=== PATIENT | male | born 1970 | race Caucasian/White ===

== ENCOUNTER 2024-01-12 11:35 | Outpatient (REF) | payer SELFPAY ==
--- NOTE | 2024-01-12 14:05 | MHC.AU.HA3 ---
Hearing Instrument Follow-Up- Binaural Date of Visit: 01/12/24 Left Ear: Make, Model, Color, Serial Number: Christian OPN S2 PP BTE SN: [id number] Color: Steel P[place]on Teacher [employer] Repair Warranty: 03/14/2023 [employer] Loss and Damage Warranty: 03/14/2023 [facility] Service Plan: 03/12/2021 Battery Size: 13 Moving Consultant/Slim Tube: Earmold/Dome/CShell/SlimTip: MicroSonic Acrylic Canal-Lock Type of Wax Guard: Dispensed By: [facility] Date of Fittin03/12/2020 Follow-Up Summary: Julio returned for an updated hearing test. He reported his primary prototype sewer is Dasha Ba at [facility]. However, he is working with [facility] to possibly pursue a new hearing aid. Julio's hearing and speech discrimination has changed significantly compared to his previous evaluation. Discussed options as Oticon has not yet released a newer power BTE. 1. Change manufacturers 2. Change styles 3. Clean/retube and reprogram current hearing aid, waiting a little longer to see if Oticon releases a newer power BTE 4. Consider CI evaluation. Julio opted for options 3 and 4. Cleaned hearing aid and ear mold. Replaced tubing. Reprogrammed to updated test. Julio noted improvement in sound quality. He reportedly has an appointment scheduled on 01/23/2024 at [facility] and he would like to discuss his options with Dasha. If he decides to pursue a new hearing aid, he will schedule a Hearing Aid Consultation, knowing his test is valid for six months. Recommendations: Hearing instrument follow-up or maintenance as needed. Please contact our clinic with any questions or concerns. Diagnosis Code(s): Primary Diagnosis: H90.3 Bilateral Sensorineural Hearing Loss Signature: Provider: Devin Ambriz, [facility]3]-A
== END 2024-01-12 11:36 | disposition home or self-care (01) ==
LOC: HO.HAP 11:35
PROVIDERS: Visit Provider Physician Assistant
DX: Z46.1 Encounter for fitting and adjustment of hearing aid (principal); H90.3 Sensorineural hearing loss, bilateral
CPT/HCPCS: 92592

== ENCOUNTER 2025-02-05 10:51 | Outpatient (REF) | payer SELFPAY ==
--- OUTSIDE RECORDS SUMMARY | 2025-02-05 12:12 | XMS_ITS | Continuity of Care Document ---
Author Organization [facility] Address [address] [place] [address] Dr [address] [place] [address] Phone Care Team Providers Care Testing Machine Operator Name Role Phone Jona SMITH, VANIA, Goyo GOMEZ Unavailable U navailable Procedures Procedure Date Offic Cons New/estab Mod 40 Mi- CT & [place] Surgical Stockings CVR Reveal Thigh High Duplex Scan-extrem Veins; Uni/ CT & [place] A Advance Directives Directive Yes / No Effective Date File Name No Information Encounters Encounter Description Practice Location Reason(s) For Visit Diagnoses Date Provider Providers Copied on Encounter Offic Cons New/estab Mod 40 Mi- CT & [place] [facility], [address] [place] [address] Dr Carbajal [address], [id number], [place] tel:[phone] [place] Varicose veins of right lower extremity with other complications Pain in right lower legPain in right legLocalized edemaRestless legs syndromePhleb itis and thrombophlebi tis of superficial vessels of lower extremities, bilateralPrur itus, unspecifiedCr amp and spasm 4 Jona SMITH, VANIA, JASON Nance. [address] [facility], [facility], [facility], [id number] , [place]. tel:[phone] [facility], [address] [place] [address] Dr Carbajal [address]N[place], [id number], [place] tel:[phone] [facility] Chronic venous hypertension (idiopathic) with other complications of right lower extremity Jona SMITH, RVT, RPVI Goyo. [address] [facility], [address], [place], [place], [id number] , . tel:[phone] Referring Provider: Erika Lynch [facility], [address], [address]. tel:[phone] Family History Family Member Type Diagnosis Age At Onset No Information Payers Payer name Insurance type Covered democrat ID [id number] [facility] [id number] Social History Type Description Quantity Date Captured Comments Alcohol Use Details Unknown Caffeine Use Details Unknown Tobacco Use Status Current non-smoker Smoking Status Never Smoker Non-Smoking Tobacco Use Details : No Details Available : No Details Available Sex Male Vital Signs Date / Time: Height Weight BMI Pulse Rate Blood Pressure Temperature Respiratory Rate Body Surface Area Head Circumference Head Circ. Percentile Wt./Nicola. Percentile BMI percentile Pulse Ox Inhaled Ox 69.850 kg (154.00 lbs) 24.9 3 kg/m eter (2) 128/36 mm[Hg] Chief Complaint And Reason For Visit No Information Reason For Referral Reason For Referral No Information Plan Of Treatment Date Type Action Status Goal Diet education completed Referral Ordered: Weight management: Referral to physician timeframe: 3 Months (related to Body mass index (BMI) 24.0-24.9, adult) ordered History Of Present Illness Encounter Date Complaint History Of Prese nt Illness No Information Functional Status Date Functional Assessmen t No Information Instructions Date Instruction Additional Infor mation Diet education Related to Body mass index (BMI) 24.0-24.9, adult Giving Encouragement to exercise Related to Body mass index (BMI) 24.0-24.9, adult Lifestyle education Related to B maged mass index (BMI) 24.0-24.9, adult Patient education booklet given Related to Varicose veins of right lower extremity with other complications Pre and post instruc tions reviewed and provided Related to Varicose veins of right lower extremity with other complications Assessments Type Assessment Date No Information Patient Care Teams Name Effective Dates (start - stop) Status Members No Information
--- OUTSIDE RECORDS SUMMARY | 2025-02-05 12:12 | XMS_ITS | Data Portability ---
Author Organization [place] - [facility] Address [address] [address] Care Team Providers Care Flattening Press Operator Name Role Phone JAIDA VILLAREAL Primary Care Provider Assessment Encounter Date Assessment Date Assessment LastModified by Organization Details LastModified Time 11/06/2024 11/06/2024 Patient with bilateral cerumen impaction. Tolerated left debridement well; TM fully visualized - intact with well-aerated middle ear space. Right ear with thick film of hard dry cerumen pressed against the drum. Partially debrided; visualized portion of TM intact with well-aerated middle ear space. Recommend 14 day trial of mineral oil BID and return for further debridement. Discussed moving forward he may benefit from weekly application of mineral oil to both ears. Reviewed instructions for use - 2-3 drops into the ear, lie on that side for five minutes, then switch. [email or web address] Not available 11/06/2024 11:18:38 11/27/2024 11/27/2024 54yo male with right-sided profound and left-sided severe SNHL with amplification presents for right cerumen debridement. He trialed mineral oil regimen. Cerumen impaction removed from the right external auditory canal. Otologic exam demonstrates TMs are intact and well aerated. Patient is closely followed by Dasha Frias at [facility] audiology. He is scheduled for updated audiometric testing and hearing aid fitting next month. He researched cochlear implant technology and is not interested in surgical intervention at this time. He will follow-up in our office as needed for cerumen debridement. [email or web address] Not available 11/27/2024 10:49:43 Plan of Treatment Reminders Order Date Submit Date Provider Last Modified By Organization Details Last Modified Time Details Appointments None record ed. Lab None record ed. Referral None record ed. Procedures None record ed. Surgeries None record ed. Imaging None record ed. Medication Orders None record ed. Patient TargetsNo targets recorded. Patient InstructionsNo instructions recorded. Reason for Referral None Reported. Results Created Date Observation Date Name Description Value Unit Range Abnormal Flag Note LastModifiedBy Organization Detail LastModifiedTime 11/07/1911/07/2024 audio logic asses sment (PROC ) No observ ation record ed. [email or web address] [facility] [address] [place] [address], [id number], 11/08/2024 09:58:55 Result Notes None recorded. Problems Name Problem SNOMED Code Status Onset Date Resolution Date Notes Provider Name and Address Organization Details Recorded Time Impacted cerumen of bilateral ears 54249889040 27826 Active 2017 Impacted cerumen, bilateral ; Note: Date Diagnosed : 10/26/2017 11:21 AM (H61.23) Not Available [facility] 4 02:25:20 Sensorine ural hearing loss of bilateral ears 760557992 Active 2017 Sensorine ural hearing loss, bilateral ; Note: Date Diagnosed : 10/26/2017 10:55 AM (H90.3) Not Available [facility] 4 02:25:28 Impacted cerumen in left ear 38385981705 28232 Active 2019 Impacted cerumen, left ear; Note: Date Diagnosed : 10/28/2019 2:44 PM (H61.22) Not Available [facility] 4 02:25:39 Pain in throat 954028540 Active 2018 Pain in throat; Note: Date Diagnosed : 04/29/2019 5:17 PM (R07.0) Not Available [facility] 4 02:25:31 M? ? ?ni? ? ?re's disease 46491824 Active 2017 Meniere's disease, unspecifi ed ear; Note: Date Diagnosed : 10/26/2017 11:22 AM (H81.09) Not Available [facility] 4 02:25:28 Bilateral tinnitus 98522472863 02 Active 2024 ODIN MORGAN PA-C [address], [place], [address] , [facility] - [facility] 11:18:41 Impacted cerumen in right ear 22295898561 38168 Active 2024 GAURANG MOREIRA PA-C [address], [place], [address] , [facility] - [facility] 22:20:51 Problem Notes None recorded. Procedures Surgical History Date Name Laterality Status Provider Name and Address Organization Details Recorded Time Cerumen removal without microscope right completed GAURANG MOREIRA [facility]-C [address] [facility],[address]IE [facility], [place], [address], [facility] - [facility] 11/26/2024 22:20:43 Cerumen removal without microscope bilat completed ODIN MORGAN PA-C [address] [facility] [place],[address]IE [facility], [place], [address], [facility] - [facility] 11/06/2024 11:13:42 Imaging Results Imaging Date Name Status LastModified by Organiz ation Details LastModified Time 11/07/2024 audiologic assessment (PROC) completed [email or web address] [facility] [address] [place] [address], [id number], 11/08/2024 09:58:55 Procedure Notes None recorded. Medical Equipment None Reported. Medications Name Sig Start Date Stop Date Status Note LastModified by Organization Details LastModified Time naltrexone 50 mg tablet active Not Available Not Available Not Available atenolol 25 mg tablet active Not Available Not Available Not Available sertraline 25 mg tablet active Not Available Not Available Not Available bisacodyl 5 mg tablet,delayed release 11/06 completed Not Available Not Available Not Available atenolol 50 mg tablet active Not Available Not Available Not Available fenofibrate nanocrystallized 145 mg tablet active Not Available Not Availabl e Not Available GaviLyte-G 236 gram-22.74 gram-6.74 gram-5.86 gram oral solution 11/06 completed Not Available Not Available Not Available Vitals Date Recorded Body height Body mass index (BMI) Body weight Provider Name and Address Organization Details Last Updated DateTime 11/06/2024 167.64 cm 25 kg/m2 04196.82 g Leonor Kraft [facility] 11/06/2024 10:56:16 Date Recorded Body height Body mass index (BMI) Body weight Provider Name and Address Organization Details Last Updated DateTime 11/27/2024 170.18 cm 25.8 kg/m2 61744.74 g [facility] 11/27/2024 10:14:13 Social History None recorded. Functional Status None recorded. Mental Status None recorded. Family History Nothing Reported. Medical History Condition Response Allergies/Hayfever N Heart Problems N Anxiety N Tonsil Infections N Emphysema N Migraines N Thyroid Problems N Glaucoma N Depression N COPD N Developmental Delay N Nasal or Sinus Problems N Anemia N Immune System Disorder N Anesthesia Complications N Heart Attack ([place]) N Other Skin Condition N Diabetes N Rhinitis N Bleeding Disorder N Food Allergy N Arthritis N Hearing Loss Y Hyperlipidemia N Cancer N Stroke N Dementia N Nasal polyps N Asthma N Sleep Disorder N GERD/Reflux N High Cholesterol N Liver Disease N Headaches N Fibromyalgia N Hypertension N Speech Delay N Kidney Disease N Past Encounters Encounter ID Performer Location Encounter Start Date Encounter Closed Date Diagnosis/Indication Diagnosis SNOMED-CT Code Diagnosis ICD10 Code Diagnosis Note [id number] ODIN MORGAN PA-C [facility] [address] [address] 11/06/2024 10:51:31 11/06/2024 11:12:00 Impacted cerumen of bilateral ears 6824868303 695460 H61.23 Bilateral tinnitus 91495 46996 102 H93.13 Sensorineu ral hearing loss of bilateral ears 201551841 H90.3 [id number] GAURANG MOREIRA PA-C [facility] [address] [address] 11/27/2024 10:04:41 11/27/2024 10:48:02 Impacted cerumen in right ear 6763332381 757818 H61.21 Sensorineu ral hearing loss of bilateral ears 698719276 H90.3 Health Concerns Section Related Observation LastModified by Organization Detai ls LastModified Time None Recorded Concern Status LastModified by Organization Details LastModified Time None Recorded Advance Directives Directive None Recorded Payers Insurance Date Sequence Insurance Name Policy Number Policy Andrade Covered Member ID Andrade Member ID Guarantor Name 11/27/2024 1 [facility] [id number] 1 [id number] Notes Date Note Type Note Provider Name and Address Organization Details Recorded Time 11/06/2024 text/html 54 year old male presents after 4 year hiatus from the practice for cerumen removal. Has been using hydrogen peroxide once every four months, most recently about a month ago. Reports slight decrease in hearing; has an appointment for audiometry coming up so he can update the hearing aids. Reports he has very little hearing in the right ear and wears amplification on the left. There is intermittent tinnitus, well tolerated. There is no otalgia and no otorrhea. ODIN MORGAN PA-C [address], [address], [facility] - [facility] 11/06/2024 11:19:06 11/27/2024 text/html 54yo male with right-sided profound and left-sided severe SNHL with amplification presents for right cerumen debridement. He trialed mineral oil regimen. Denies ear pain, ear drainage, or hearing changes. No new concerns today. KIESHA COLORADO MD [address] [place] [address],[address], [address], [facility] - [facility] 11/27/2024 11:24:29
== END 2025-02-05 10:52 | disposition home or self-care (01) ==
LOC: HO.HAP 10:51
PROVIDERS: Visit Provider Physician Assistant
DX: Z13.89 Encounter for screening for other disorder (principal)

== ENCOUNTER 2025-02-19 14:37 | Outpatient (REF) | payer SELFPAY ==
--- OUTSIDE RECORDS SUMMARY | 2025-02-19 14:47 | XMS_ITS | Data Portability ---
Author Organization [place] - [facility] Address [address] [address] Care Team Providers Care Managing Principal Name Role Phone JAIDA VILLAREAL Primary Care [...] is closely followed by Dasha Frias at [facility] audiology. He is scheduled for updated [...] ) No observ ation record ed. [email or web address] [facility] [address] [place] [address], [address], 11/08/2024 09:58:55 Result Notes None recorded. Problems Name Problem SNOMED Code Status Onset Date Resolution Date Notes Provider Name and Address Organization Details Recorded Time Impacted cerumen of bilateral ears 25095594292 27008 Active 2017 Impacted cerumen, bilateral ; Note: Date Diagnosed : 10/26/2017 11:21 AM (H61.23) Not Available [facility] 4 02:25:20 Sensorine ural hearing loss of bilateral ears 958787741 Active 2017 Sensorine ural hearing loss, bilateral ; Note: Date Diagnosed : 10/26/2017 10:55 AM (H90.3) Not Available [facility] 4 02:25:28 Impacted cerumen in left ear 70689080225 98616 Active 2019 Impacted cerumen, left ear; Note: Date Diagnosed : 10/28/2019 2:44 PM (H61.22) Not Available [facility] 4 02:25:39 Pain in throat 347151911 Active 2018 Pain in throat; Note: Date Diagnosed : 04/29/2019 5:17 PM (R07.0) Not Available [facility] 4 02:25:31 M? ? ?ni? ? ?re's disease 14657816 Active 2017 Meniere's disease, unspecifi ed ear; Note: Date Diagnosed : 10/26/2017 11:22 AM (H81.09) Not Available [facility] 4 02:25:28 Bilateral tinnitus 37986369814 02 Active 2024 ODIN MORGAN PA-C [address], [place], [address] , [facility] - [facility] 11:18:41 Impacted cerumen in right ear 05494330751 31662 Active 2024 GAURANG MOREIRA PA-C [address], [place], [address] , [facility] - [facility] 22:20:51 Problem Notes None recorded. Procedures Surgical History Date Name Laterality Status Provider Name and Address Organization Details Recorded Time Cerumen removal without microscope right completed GAURANG MOREIRA PA-C [address] [facility]ANNIE [facility], [place], [address], [facility] - [facility] 11/26/2024 22:20:43 Cerumen removal without microscope bilat completed ODIN MORGAN PA-C [address] [facility], [place], [address], [facility] - [facility] 11/06/2024 11:13:42 Imaging Results Imaging Date Name Status LastModified by Organiz ation Details LastModified Time 11/07/2024 audiologic assessment (PROC) completed [email or web address] [facility] [address] [place] [address], [address], 11/08/2024 09:58:55 Procedure Notes None recorded. Medical [...] Updated DateTime 11/06/2024 167.64 cm 25 kg/m2 63577.82 g Leonor Kraft [facility] 11/06/2024 10:56:16 Date Recorded Body height Body mass index (BMI) Body weight Provider Name and Address Organization Details Last Updated DateTime 11/27/2024 170.18 cm 25.8 kg/m2 56533.74 g [facility] 11/27/2024 10:14:13 Social History None recorded. [...] Disorder N Anesthesia Complications N Heart Attack ([place]) N Other Skin Condition N Diabetes N [...] SNOMED-CT Code Diagnosis ICD10 Code Diagnosis Note [id number] ODIN MORGAN PA-C [facility] [address] [address] 11/06/2024 10:51:31 11/06/2024 11:12:00 Impacted cerumen of bilateral ears 9452867636 728666 H61.23 Bilateral tinnitus 11161 07064 102 H93.13 Sensorineu ral hearing loss of bilateral ears 143438107 H90.3 [id number] GAURANG MOREIRA PA-C [facility] [address] [address] 11/27/2024 10:04:41 11/27/2024 10:48:02 Impacted cerumen in right ear 3642765364 434697 H61.21 Sensorineu ral hearing loss of bilateral ears 718660154 H90.3 Health Concerns Section Related Observation LastModified by Organization Detai ls LastModified Time None Recorded Concern Status LastModified by Organization Details LastModified Time None Recorded Advance Directives Directive None Recorded Payers Insurance Date Sequence Insurance Name Policy Number Policy Andrade Covered Member ID Andrade Member ID Guarantor Name 11/27/2024 1 [facility] [id number] 1 [id number] Notes Date Note Type Note Provider Name [...] and no otorrhea. ODIN MORGAN PA-C [address], [address], [facility] 11/06/2024 11:19:06 11/27/2024 text/html 54yo male with right-sided profound and left-sided severe SNHL with amplification presents for right cerumen debridement. He trialed mineral oil regimen. Denies ear pain, ear drainage, or hearing changes. No new concerns today. KIESHA COLORADO MD [address] [place] [address],[address], [address], [facility] 11/27/2024 11:24:29
== END 2025-02-19 14:38 | disposition home or self-care (01) ==
LOC: HO.HAP 14:37
PROVIDERS: Visit Provider Physician Assistant
DX: Z13.89 Encounter for screening for other disorder (principal)

== ENCOUNTER 2025-03-24 11:10 | Outpatient (REF) | payer SELFPAY ==
--- NOTE | 2025-03-24 12:30 | MHC.AU.HA3 ---
Hearing Instrument Follow-Up- Binaural Date of Visit: 03/24/25 Right Ear: NONE Left Ear: Make, Model, Color, Serial Number: Oticon Xceed 13 JOSÉ Morocho#[id number] Integrity Manager Repair Warranty: 03/19/2028 Integrity Manager Loss and Damage Warranty: 03/19/2028 [facility] Service Plan: 02/19/2026 Battery Size: 13 Earmold/Dome/CShell/SlimTip: MicroSonic Acrylic Canal-Lock Dispensed By: [facility] Date of Fittin02/19/2025 Follow-Up Summary: Carl reports good satisfaction with the Oticon hearing aid. He requests no adjustment at this time. Reviewed bellows assembler warranty expiration and [facility] service agreement expiration dates. Recommendations: Recommendations: Hearing instrument follow-up or maintenance as needed. Diagnosis Code(s): Primary Diagnosis: H90.3 Bilateral Sensorineural Hearing Loss Signature: Provider: Devin Devries, CCC-A
--- OUTSIDE RECORDS SUMMARY | 2025-03-24 12:45 | XMS_ITS | Data Portability ---
Author Organization [place] - [facility], Allergy Address [address] [address] Care Team Providers Care Supervisor [employer] Name Role Phone JAIDA VILLAREAL Primary Care [...] is closely followed by Dasha Frias at [facility] audiology. He is scheduled for updated audiometric testing and hearing aid fitting next month. He researched cochlear implant technology and is not interested in surgical intervention at this time. He will follow-up in our office as needed for cerumen debridement. rose Not available 11/27/2024 10:49:43 Plan of Treatment [...] ) No observ ation record ed. [email or web address] [address] [place], [address], 11/08/2024 09:58:55 Result Notes None recorded. Problems Name Problem SNOMED Code Status Onset Date Resolution Date Notes Provider Name and Address Organization Details Recorded Time Impacted cerumen of bilateral ears 31039399676 51731 Active 2017 Impacted cerumen, bilateral ; Note: Date Diagnosed : 10/26/2017 11:21 AM (H61.23) Not Available [facility] 4 02:25:20 Sensorine ural hearing loss of bilateral ears 776847564 Active 2017 Sensorine ural hearing loss, bilateral ; Note: Date Diagnosed : 10/26/2017 10:55 AM (H90.3) Not Available [facility] 4 02:25:28 Impacted cerumen in left ear 72394285435 96322 Active 2019 Impacted cerumen, left ear; Note: Date Diagnosed : 10/28/2019 2:44 PM (H61.22) Not Available [facility] 4 02:25:39 Pain in throat 471863585 Active 2018 Pain in throat; Note: Date Diagnosed : 04/29/2019 5:17 PM (R07.0) Not Available [facility] 4 02:25:31 M ni re's disease 37241137 Active 2017 Meniere's disease, unspecifi ed ear; Note: Date Diagnosed : 10/26/2017 11:22 AM (H81.09) Not Available [facility] 4 02:25:28 Bilateral tinnitus 49606952287 02 Active 2024 ODIN MORGAN PA-C [address], [place], [address] , [facility] - [facility] 11:18:41 Impacted cerumen in right ear 36942101526 47856 Active 2024 GAURANG MOREIRA PA-C [address], [place], [address] , [facility] - [facility] 22:20:51 Problem Notes None recorded. Procedures Surgical History Date Name Laterality Status Provider Name and Address Organization Details Recorded Time Cerumen removal without microscope right completed GAURANG MOREIRA PA-C [address] [facility] [place] [address] [facility][note 2], [place], [address], [facility] - [facility] 11/26/2024 22:20:43 Cerumen removal without microscope bilat completed ODIN MORGAN PA-C [address] [facility] [place],[address] [facility][note 2], [place], [address], [facility] - [facility] 11/06/2024 11:13:42 Imaging Results None recorded. Procedure Notes None recorded. Medical Equipment None [...] Updated DateTime 11/06/2024 167.64 cm 25 kg/m2 22976.82 g Leonor Kraft [place] - [facility] 11/06/2024 10:56:16 Date Recorded Body height Body mass index (BMI) Body weight Provider Name and Address Organization Details Last Updated DateTime 11/27/2024 170.18 cm 25.8 kg/m2 04012.74 g Leonor Kraft [place] - [facility] 11/27/2024 10:14:13 Social History None recorded. [...] Disorder N Anesthesia Complications N Heart Attack (DC) N Other Skin Condition N Diabetes N [...] SNOMED-CT Code Diagnosis ICD10 Code Diagnosis Note [id number] ODIN MORGAN PA-C [facility] [address] [address] 11/06/2024 10:51:31 11/06/2024 11:12:00 Impacted cerumen of bilateral ears 4795079115 116042 H61.23 Bilateral tinnitus 25509 03463 102 H93.13 Sensorineu ral hearing loss of bilateral ears 939499832 H90.3 [id number] GAURANG MOREIRA PA-C [facility] [address] [address] 11/27/2024 10:04:41 11/27/2024 10:48:02 Impacted cerumen in right ear 5328774816 884404 H61.21 Sensorineu ral hearing loss of bilateral ears 736774915 H90.3 Health Concerns Section Related Observation LastModified by Organization Detai ls LastModified Time None Recorded Concern Status LastModified by Organization Details LastModified Time None Recorded Advance Directives Directive None Recorded Payers Insurance Date Sequence Insurance Name Policy Number Policy Andrade Covered Member ID Andrade Member ID Guarantor Name 11/27/[address] [place] [address] [id number] 1 [place]io [place] [id number] Notes Date Note Type Note Provider Name [...] and no otorrhea. ODIN MORGAN PA-C 100 [facility],[address], [address], [facility] - [facility] 11/06/2024 11:19:06 11/27/2024 text/html 54yo male with right-sided profound and left-sided severe SNHL with amplification presents for right cerumen debridement. He trialed mineral oil regimen. Denies ear pain, ear drainage, or hearing changes. No new concerns today. KIESHA COLORADO MD 100 [facility],[address], [address], [facility] - [facility] 11/27/2024 11:24:29
== END 2025-03-24 11:11 | disposition home or self-care (01) ==
LOC: HO.HAP 11:10
PROVIDERS: Visit Provider Physician Assistant
DX: Z13.89 Encounter for screening for other disorder (principal)

== ENCOUNTER 2025-06-14 14:28 | Emergency (ER) | payer OTHER, SELFPAY ==
[2025-06-14 14:35] VITALS: BP 160/100; PULSE 102; O2SAT 94
[2025-06-14 14:44] VITALS: BP 139/86; PULSE 98; RESP 16; TEMP 36.4; O2SAT 94; BMI 25.8
--- NOTE | 2025-06-14 14:46 | PC.NURSE ---
security at bedside, searched through patients pockets. patient resting quietly. continues to refuse to answer this RN's questions.
--- OUTSIDE RECORDS SUMMARY | 2025-06-14 15:53 | XMS_ITS | Patient Health Record ---
Author Organization [facility] [place] Address [address] [place] [address] Care Team Providers Care Chemical Waste Management Technician Name Role Phone Amber Lennon Unavailable [phone] Reason For Referral No Information Medications Medication SIG (Take, Route, Fr equency, Duration) Notes Start Date End Date Status Fenofibrate 145 MG Oral; Duration: 90 Active Atenolol 50 MG Oral; Duration: 90 Active Social History Tobacco Use: Social History Observation Description Date Details (start date - stop date) Never Smoker NA - NA Tobacco Use/Smoking Question Answer Notes Are you a: nonsmoker Additional Findings: Tobacco Non-User Current no n-smoker Alcohol Screen Question Answer Notes Did you have a drink contain ing alcohol in the past year? Yes How often did you have a dri nk containing alcohol in the past year? 2 to 4 times a month (2 points) How many drinks did you have on a typical day when you were drinking in the past year? 1 or 2 drinks (0 point) How often did you have 6 or more drinks on one occasion in the past year? Never (0 point) Points 2 Interpretation Negative Tobacco use other than smoking: Question Answer Notes Are you an other tobacco user? No Problems Problem Type SNOMED Code ICD Code Onset Dates Problem Status W/U Status Risk Notes Problem Acquired hammer toe of left foot (6386842527709 103) Hammertoe of left foot (M20.42) Active confirmed Plan Of Treatment Pending Test Test Name Order Date X ray : Foot, right 2V 09/21/2018 [id number] Destruction, 1-14 03/20/2018 Insurance Providers Payer Name Payer Address Payer Phone Subscriber Number Group Number Insured Name Patient Relationship to Insured Coverage Start Date Coverage End Date [facility] [address] [facility] [place], [place] [address] [id number] Julio Self - patient is the insured Medical (General) History Medical History History ICD Code High blood pressure
--- NOTE | 2025-06-14 16:09 | ED.ALCOHOL ---
HPI - Alcohol General Chief Complaint: ETOH/Substance Use Stated Complaint: ETOH Time Seen by Provider: 06/14/25 15:19 History of Present Illness ED Provider: Efraín Forte MD HPI narrative: 54-year-old male arrived intoxicated found on the ground by bystanders. Related Data Allergies Allergy/AdvReac Type Severity Reaction Status Date / Time Unable to Assess Allergy Verified 06/14/25 14:46 [facility] Social History Social History Advance Directives: No Advance Directives Information Provided: No Physical Exam ED Exam Exam: EXAM: Gen: Alert, awake, well appearing, well hydrated. Head: Atraumatic Eyes: Anicteric, Normal conjunctiva. ENT: Moist mucosa, no pallor. ? Neck: Supple. Skin: ?No observable rash or bruising on exposed or examined skin Respiratory: Breathing comfortably, No distress.Clear to auscultation bilaterally, symmetric chest expansion, No wheeze, rales, ronchi. Cardiovascular: Regular rate and rhythm. No murmurs or rub. Well perfused periphery, warm extremities. No edema. ? Abdominal: No focal tenderness. Soft, no objective distension. No palpable masses or obvious organomegaly. ?No guarding, no rebound tenderness or other peritoneal findings. : No flank tenderness. Neuro: Alert. Gross movement of all extremities intact. ? Psych: Calm. Cooperative. MSK: No grossly visible deformity. Vital signs: See flowsheet Vital Signs: Vital Signs - 24 hr 06/14/25 14:44 06/14/25 17:24 Temperature 97.6 F Pulse Rate 98 96 Respiratory Rate 16 20 Blood Pressure 139/86 129/69 Pulse Oximetry 94 91 L Oxygen Delivery Method Room Air Room Air BMI result Body Mass Index 25.8 Medical Decision Making Medical Decision Making MDM Narrative: Medical Decision Makin M with ETOH intox. laying on the ground in [place]. No hemodynamic instability or evidence of injury on exam. Pt was allowed to sober up and eventually was cleared. He ambulated, had clear speech and so sign of medical emergency. Left in an uber. Preliminary Favored Differential Diagnosis: [ ] among additional considered etiologies Testing Interpreted Independently: ?See below for details Radiology or Lab testing Results Reviewed: ?See below for details Consults: ?See below for details Independent Historians/External Chart Reviews: ?See below for details Social Determinants of Health Impacting MDM/Planning: ?See below for details Lab Data 06/14/25 17:08 06/14/25 17:08 Labs: Lab Results 06/14/25 Range/Units 17:08 WBC 8.1 (4.8-10.8) X10*3/uL RBC 5.14 (4.60-5.80) X10*6/uL Hgb 16.2 (14.0-18.0) g/dl Hct 44.5 (42.0-52.0) % MCV 86.6 (80.0-98.0) fL MCH 31.5 (27.0-33.0) pg MCHC 36.4 H (31.0-36.0) g/dl RDW 13.9 (11.0-16.0) % Plt Count 237 (160-400) X10*3/uL MPV 8.6 L (9.4-12.4) fL Immature Gran % (Auto) 0.4 (0.0-0.4) % Neut % (Auto) 44.0 L (45-73) % Lymph % (Auto) 50.7 H (20-40) % Schuyler % (Auto) 3.6 (2-11) % Eos % (Auto) 0.9 (0-4) % Baso % (Auto) 0.4 (0-2) % Lymph # (Auto) 4.1 (1.2-4.9) X10*3/uL Schuyler # (Auto) 0.3 (0.1-1.2) X10*3/uL Eos # (Auto) 0.1 (0.0-0.4) X10*3/uL Baso # (Auto) 0.0 (0.0-0.2) X10*3/uL Abs Immat Gran (auto) 0.03 (0.00-0.03) X10*3/uL Absolute Neuts (auto) 3.6 (2.0-8.3) x10*3/uL Absolute Nucleated RBC 0.000 (0.0-0.012) X10*3/uL Nucleated RBC % (auto) 0.0 (0.0-0.2) /100WBC Sodium 143 (135-145) mmol/L Potassium 3.7 (3.3-5.1) mmol/L Chloride 106 (96-108) mmol/L Carbon Dioxide 19 L (22-29) mmol/L Anion Gap 22 H (12-20) BUN 17 H (9-16) mg/dL Creatinine 0.64 (0.5-1.4) mg/dL Estim Creat Clear Calc 131.9 Estimated GFR > 60 Random Glucose 93 (60-115) mg/dL Calcium 8.9 (8.4-10.2) mg/dL Total Bilirubin 1.3 H (0.0-1.0) mg/dL AST 38 H (5-37) U/L ALT 27 (0-40) U/L Alkaline Phosphatase 78 (39-117) U/L Total Protein 7.7 (6.5-8.0) g/dL Albumin 4.9 (3.5-5.0) g/dL Ethyl Alcohol 360 H* mg/dL Discharge Plan Discharge Clinical Impression: Alcoholic intoxication Patient Disposition: Home, Self-Care Instructions: Alcohol Intoxication (ED) Additional Instructions: DISCHARGE DIAGNOSES: Alcohol intoxication HISTORY OF PRESENTATION: Public intoxication no injuries were reported EMERGENCY DEPARTMENT COURSE,TESTS, TREATMENTS: While in the ED today you were monitored for sobriety DISCHARGE MEDICATIONS: ?[We have made no changes to your regular medication regimen] FOLLOW-UP: ?Call your primary or general physician soon as possible to discuss your symptoms, your ED visit and to discuss follow up plans Follow up with your primary doctor INSTRUCTIONS ?& RETURN PRECAUTIONS: If any symptoms change first call your primary physician, if it is after-hours your primary doctors office should have a provider digital content specialist you can speak with. If the symptoms are severe or very concerning to you then call 911 or return to the ED. Efraín Forte MD Emergency Physician [facility] Interventions: ED Discharge Assessment Last Done: 06/14/25 20:22 Discharge Date/Time: 06/14/25 20:24 Print Language: Malay
[2025-06-14 17:14] LABS: MANUAL DIFF FLAG NO
[2025-06-14 17:18] LABS: Hematocrit 44.5 % (42.0-52.0); Hemoglobin 16.2 g/dl (14.0-18.0); Imm Gran Abs Auto 0.03 X10*3/uL (0.00-0.03); Imm Gran Pct Auto 0.4 % (0.0-0.4); Lymphocytes Absolute Auto 4.1 X10*3/uL (1.2-4.9); Mean Corpuscular HGB Conc 36.4 g/dl (31.0-36.0); Mean Corpuscular Hemoglobin 31.5 pg (27.0-33.0); Mean Corpuscular Volume 86.6 fL (80.0-98.0); NRBC Abs Auto 0.000 X10*3/uL (0.0-0.012); NRBC Pct Auto 0.0 /100WBC (0.0-0.2); Platelet Count 237 X10*3/uL (160-400); Red Blood Count 5.14 X10*6/uL (4.60-5.80); White Blood Count 8.1 X10*3/uL (4.8-10.8)
[2025-06-14 17:24] VITALS: BP 129/69; PULSE 96; RESP 20; O2SAT 91
[2025-06-14 17:32] LABS: Alanine Aminotransferase 27 U/L (0-40); Albumin Level 4.9 g/dL (3.5-5.0); Alkaline Phosphatase 78 U/L (39-117); Anion Gap 22 (12-20); Aspartate Amino Transferase 38 U/L (5-37); Blood Urea Nitrogen 17 mg/dL (9-16); Calcium 8.9 mg/dL (8.4-10.2); Carbon Dioxide 19 mmol/L (22-29); Chloride 106 mmol/L (96-108); Creatinine Clr Calc Pharmacy 131.9; Estimated Glomerular Filt Rate > 60; Potassium 3.7 mmol/L (3.3-5.1); Sodium 143 mmol/L (135-145); Total Protein 7.7 g/dL (6.5-8.0)
[2025-06-14 20:17] VITALS: BP 157/97; PULSE 101; RESP 18; TEMP 36.5; O2SAT 96
[2025-06-14 20:22] VITALS: BP 157/97; PULSE 101; RESP 18; TEMP 36.5; O2SAT 96
--- NOTE | 2025-06-15 11:47 | MHC.RECOVRN ---
Had attempted to meet w/ pt for a AUD eval, however pt declined to meet with this RN.
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
== END 2025-06-14 20:24 | disposition home or self-care (01) ==
PROVIDERS: Emergency Provider Emergency Medicine
DX: F10.129 Alcohol abuse with intoxication, unspecified (principal)
CPT/HCPCS: 36415; 80053; 80307; 85025; 99283